=== PATIENT | female | born 1940 | race Two or more races ===

== ENCOUNTER 2023-01-25 11:23 | Inpatient (IN) | payer MEDICARE ==
[~2023-01-25] VITALS: Ht 152.4 cm; Wt 47.6 kg
--- NOTE | 2023-01-25 11:33 | NUR ---
PT IN BED 12, BROUGHT IN BY FAMILY FOR WORSENING CONFUSION SECONDARY TO ALZHEIMERS. CURRENTLY PT IS NOT DISPLAYING ANY S/S OF DISTRESS. IS CALM AND FOLLOWING DIRECTIONS AND ALLOWING STAFF TO PROVIDE CARE. FAMILY IS AT BEDSIDE. BED LOCKED IN LOWEST PSOTION HI FOWLERS. CONNECTED TO BEDSIDE MONITOR.
--- NOTE | 2023-01-25 11:49 | NUR ---
BLOOD AND CULTRUES DRAWN AND SENT TO LAB
--- NOTE | 2023-01-25 11:50 | NUR ---
COVID AND MRSA SWABED AND SENT TO LAB
[2023-01-25 12:04] LABS: BASOPHILS # (AUTO) 0.1 K/uL (0.0-0.2); BASOPHILS % (AUTO) 0.7 % (0.0-2.0); EOSINOPHILS % (AUTO) 0.7 % (0.0-6.0); HEMATOCRIT 44 % (33-45); HEMOGLOBIN 14.9 g/dL (11.5-14.8); LYMPHOCYTES # (AUTO) 1.7 K/uL (0.8-4.8); LYMPHOCYTES % (AUTO) 20.6 % (20.0-44.0); MEAN CORPUSCULAR HGB CONC 34 g/dl (31.0-36.0); MEAN CORPUSCULAR VOLUME 92 fL (82-100); MONOCYTES # (AUTO) 0.4 K/uL (0.1-1.30); NEUTROPHILS # (AUTO) 5.9 K/uL (1.8-8.9); PLATELET COUNT (AUTO) 205 K/uL (150-450); WHITE BLOOD COUNT (AUTO) 8.1 K/uL (4.3-11.0)
--- NOTE | 2023-01-25 12:21 | NUR ---
URINE SAMPLE COLLECTED AND SENT
[2023-01-25 12:28] LABS: CALCIUM, SERUM 9.8 mg/dL (8.5-10.1); CARBON DIOXIDE 28 mmol/L (21-32); CHLORIDE 104 mmol/L (98-107); CREATININE 0.9 mg/dL (0.6-1.3); GLUCOSE 237 mg/dL (74-106); POTASSIUM 3.6 mmol/L (3.5-5.1); SODIUM SERUM 142 mmol/L (136-145); UREA NITROGEN, BLOOD 25 mg/dL (7-18)
[2023-01-25 12:34] LABS: ALANINE AMINOTRANSFERASE 27 U/L (12-78); ALBUMIN 3.9 g/dL (3.4-5.0); ALKALINE PHOSPHATASE 64 U/L (46-116); ASPARTATE AMINOTRANSFERASE 20 U/L (15-37); BILIRUBIN,DIRECT 0.1 mg/dL (0.0-0.2); BILIRUBIN,TOTAL 0.4 mg/dL (0.2-1.0); TOTAL PROTEIN, SERUM 7.4 g/dL (6.4-8.2)
--- NOTE | 2023-01-25 12:53 | NUR ---
CALLED NURSING SUP REGARDING PT BED
[2023-01-25 12:54] LABS: BILIRUBIN,URINE NEGATIVE (NEGATIVE); COLOR,URINE YELLOW (YELLOW); LEUKOCYTE ESTERASE ,URINE NEGATIVE (NEGATIVE); NITRITE, URINE NEGATIVE (NEGATIVE); PROTEIN,URINE NEGATIVE (NEGATIVE); UGLUCOSE 1+ mg/dL (NEGATIVE); UROBILINOGEN,URINE 0.2 EU/dL (0.2)
[2023-01-25 13:04] LABS: BACTERIA,URINE Moderate /HPF (None Seen); RBC,URINE 0-2 /HPF (0-2); SQUAMOUS EPITHELIAL CELL,UR Few /HPF (None Seen); WBC,URINE 0-2 /HPF (0-3)
--- NOTE | 2023-01-25 13:04 | NUR ---
REPEAT URINE SAMPLE IN PROGRESS
--- NOTE | 2023-01-25 13:57 | NUR ---
room [id number]
[2023-01-25] MEDS ORDERED: ONDANSETRON HCL/PF 4 MG/2 ML VIAL IVP PRN (14:00)
[2023-01-25] MEDS ORDERED: ACETAMINOPHEN 325 MG TABLET PO PRN (14:00)
[2023-01-25] MEDS ORDERED: MAG HYDROX/AL HYDROX/SIMETH 30 ML UDC PO PRN (14:00)
[2023-01-25] MEDS ORDERED: MAGNESIUM HYDROXIDE 30 ML UDC PO PRN (14:00)
[2023-01-25] MEDS ORDERED: CLONIDINE HCL 0.1 MG TABLET PO PRN (14:00)
[2023-01-25] MEDS ORDERED: Z GUARD REMEDY 4 OZ OINT TP PRN (14:00)
--- NOTE | 2023-01-25 14:09 | NUR ---
HANDOFF REPORT GIVEN TO [facility] FOR INPATIENT SERVICES.
--- NOTE | 2023-01-25 14:19 | NUR ---
PT TRANSFERED TO 3W FAMILY AT BEDSIDE WITH EMT MED SURG LEVEL OF CARE.
--- NOTE | 2023-01-25 14:25 | NUR ---
MS ELIGIBILITY EXAMINER NOTES RECEIVED PATIENT VIA GURNEY FROM ER AT 1425H ACCOMPANIED BY 1 ER STAFF. WITH ADMITTING DIAGNOSIS OF ALTERED LEVEL OF CONSCIOUSNESS. PATIENT IS AWAKE, A/OX 2, VERBALLY RESPONSIVE, CAN SPEAK LEBANESE AND LITHUANIAN. PATIENT IS CURRENTLY ON ROOM AIR, TOLERATING WELL. NO SIGNS OF ACUTE DISTRESS AND SOB. PATIENT HAS NO IV ACCESS AT THUS TIME. PATIENT REFUSED BODY ASSESSMENT. PATIENT DENIES ANY PAIN AT THIS TIME. SAFETY MEASURES PUT IN PLACE. BED IN LOW AND LOCKED POSITION. SIDE RAILS UP X3. CALL LIGHT WITHIN EASY REACH. WILL CONTINUE TO MONITOR THE PATIENT.
--- NOTE | 2023-01-25 15:00 | NUR ---
MS RN PATIENT REFUSED SKIN ASSESSMENT AND PHOTO DOCUMENTATION.
[2023-01-25] MEDS: IV NS 0.9% 1,000 ML IV PRN ×2 (19:02→19:15)
--- NOTE | 2023-01-25 19:25 | NUR ---
MS BAY ATTEMPTED IV INSERTION FOR 3X, BUT PATIENT REFUSED FOR 3X.
--- NOTE | 2023-01-25 19:55 | NUR ---
MS RN CLOSING NOTES PATIENT IS AWAKE, A/OX 2, VERBALLY RESPONSIVE, CAN SPEAK TURKISH AND BURKINAN. PATIENT IS ON ROOM AIR, TOLERATED WELL. NO SIGNS OF ACUTE DISTRESS AND SOB. BREATHING EVEN AND UNLABORED. PATIENT REFUSED IV INSERTION. PATIENT DENIES ANY PAIN AT THIS TIME. ALL NURSING NEEDS ATTENDED. SAFETY MEASURES IN PLACED. BED IN LOW AND LOCKED POSITION. SIDE RAILS UP X3. CALL LIGHT WITHIN EASY REACH. WILL ENDORSED TO PROJECT PRODUCTION ENGINEER NURSE FOR CONTINUITY OF CARE.
[2023-01-25 20:00] VITALS: BP 132/98
--- NOTE | 2023-01-25 20:14 | NUR ---
RN OPENING NOTE RECEIVED PT AWAKE IN BED. PT IS A/O X 2-3, ANXIOUS, PARANOID & FORGETFUL, ABLE TO MAKE NEEDS KNOWN. PT IS IN RA TOLERATING WELL, BREATHING EVEN AND UNLABORED @ THIS TIME. PT IS AMBULATORY, STEADY. PT HAS NO IV PRESENT D/T PT REFUSAL. SAFETY MEASURES IS IN PLACE. BED IN LOWEST AND LOCKED POSITION. SIDE RAILS UP X 2. BEDSIDE TABLE AND CALL LIGHT IS EASY REACH. BED ALARM IS ON. WILL CONTINUE TO MONITOR PT ACCORDINGLY. Addendum: 01/25/23 at 2016 by ALMAS VELASQUEZ RN TIME ERROR. OPENING NOTES @1900.
[2023-01-26 06:26] LABS: HEMATOCRIT 41 % (33-45); HEMOGLOBIN 13.8 g/dL (11.5-14.8); MEAN CORPUSCULAR HGB CONC 34 g/dl (31.0-36.0); MEAN CORPUSCULAR VOLUME 91 fL (82-100); RED BLOOD CELL COUNT(AUTO) 4.44 MIL/uL (4.0-5.2); WHITE BLOOD COUNT (AUTO) 7.1 K/uL (4.3-11.0)
[2023-01-26 06:27] LABS: BASOPHILS # (AUTO) 0.1 K/uL (0.0-0.2); BASOPHILS % (AUTO) 0.9 % (0.0-2.0); LYMPHOCYTES # (AUTO) 2.4 K/uL (0.8-4.8); LYMPHOCYTES % (AUTO) 34.3 % (20.0-44.0); MONOCYTES # (AUTO) 0.5 K/uL (0.1-1.30); MONOCYTES % (AUTO) 6.5 % (2.0-12.0); NEUTROPHILS % (AUTO) 56.3 % (43.0-81.0); PLATELET COUNT (AUTO) 191 K/uL (150-450)
--- NOTE | 2023-01-26 06:36 | NUR ---
RN CLOSING NOTE PT AWAKE & RESTING COMFORTABLY IN BED. PT IS A/O X 2, RESPONSIVE AND FOLLOWS VERBAL COMMAND. PT IS IN RA W/ NO S & SX OF RESPIRATORY DISTRESS NOTED @ THIS TIME. PT HAS NO IV PRESENT D/T PT REFUSAL. SAFETY MEASURES IS IN PLACE. BED IN LOWEST AND LOCKED POSITION. SIDE RAILS UP X 2. BEDSIDE TABLE AND CALL LIGHT IS EASY REACH. BED ALARM IS ON. WILL ENDORSE TO THE NEXT SHIFT FOR CONTINUITY OF CARE.
[2023-01-26 06:54] LABS: CALCIUM, SERUM 8.8 mg/dL (8.5-10.1); CARBON DIOXIDE 29 mmol/L (21-32); CHLORIDE 105 mmol/L (98-107); GLUCOSE 163 mg/dL (74-106); MAGNESIUM 1.7 mg/dL (1.8-2.4); PHOSPHORUS 3.9 mg/dL (2.5-4.9); POTASSIUM 3.4 mmol/L (3.5-5.1); SODIUM SERUM 142 mmol/L (136-145); UREA NITROGEN, BLOOD 23 mg/dL (7-18)
[2023-01-26] MEDS ORDERED: MAGNESIUM OXIDE 400 MG TABLET PO ONE (07:30)
[2023-01-26] MEDS ORDERED: POTASSIUM CHLORIDE 20 MEQ TAB.PRT.SR PO ONE (07:30)
--- NOTE | 2023-01-26 07:31 | NUR ---
MS RN OPENING NOTE Received pt in bed, awake, ambulatory. A/O x 2-3, able to make needs known. On room air, tolerating well. No IV access noted. Pt refused IV insertion. Safety measures in place: bed locked and in lowest position, side rails up x 2, call light and tray table within easy reach. Will continue to monitor.
[2023-01-26 08:00] VITALS: BP 140/77
[2023-01-26] MEDS ORDERED: POTASSIUM CHLORIDE 20 MEQ POWDER PACKET PO ONE (09:00)
--- NOTE | 2023-01-26 09:00 | NUR ---
RN NOTES Pt refused IV insertion despite educating the need and consequences of having IV access.
[2023-01-26] MEDS ORDERED: Magnesium 1GM/D5W 100ML PREMIX 100 ML IV SCH (11:00)
[2023-01-26] MEDS ORDERED: CLOB15OI3 TP (11:15)
[2023-01-26] MEDS ORDERED: METF-440 PO (11:15)
[2023-01-26] MEDS ORDERED: CALC500T52 PO (11:15)
[2023-01-26] MEDS ORDERED: GLIP2.5T3 PO (11:15)
[2023-01-26] MEDS ORDERED: DONE10TA44 PO (11:15)
[2023-01-26] MEDS ORDERED: INSU200I4 SQ (11:15)
[2023-01-26] MEDS ORDERED: METO-357 PO (11:15)
[2023-01-26 16:00] VITALS: BP 124/74
--- NOTE | 2023-01-26 18:42 | NUR ---
MS RN CLOSING NOTE Pt resting in bed. A/O x 2-3, able to make needs known. No c/o pain/discomfort at this time. On room air, tolerating well. No IV access. Pt refused IV insertion. Needs attended. Safety measures in place: bed locked and in lowest position, side rails up x 2, call light and tray table within easy reach. Will endorse wyatt to shift supervisor film processing.
--- NOTE | 2023-01-26 19:30 | NUR ---
MS RN OPENING NOTE RECEIVED PATIENT SITTING IN BED, AWAKE, ALERT AND ORIENTED X2-3. ABLE TO MAKE NEEDS KNOWN. AFEBRILE AND NOT IN ANY FORM OF ACUTE DISTRESS. BREATHING EVEN AND NON LABORED. NO C/O PAIN OR DISCOMFORT AT THIS TIME. REFUSED INSERTION OF IV LINE, MD AWARE PER REPORT. SAFETY MEASURES IN PLACE. KEPT BED IN LOCKED AND IN LOW POSITION. SIDE RAILS UP X2. ADVISED TO USE THE CALL LIGHT WHEN IN NEED OF ASSISTANCE.
[2023-01-26 20:00] VITALS: BP 154/96
[2023-01-26 20:30] VITALS: BP 131/61
--- NOTE | 2023-01-26 20:30 | NUR ---
MS RN NOTE PATIENT'S BP AT AROUND 1999 WAS ELEVATED 154/96 BUT WAS AMBULATING PRIOR TO TAKING VITALS. ADVISED THE PATIENT TO REST AND RECHECKED AFTER 30 MINS AND WENT DOWN TO 131/61 P-88.
--- NOTE | 2023-01-27 06:21 | NUR ---
MS RN CLOSING NOTE PATIENT IN BED, ASLEEP BUT EASY TO AROUSE AND RESPONSIVE. WITH BOUTS OF CONFUSION. ABLE TO MAKE NEEDS KNOWN. AFEBRILE AND NOT IN ANY FORM OF ACUTE DISTRESS. BREATHING EVEN AND NON LABORED. NO C/O PAIN OR DISCOMFORT THROUGHOUT THE SHIFT. REFUSED INSERTION OF IV LINE, MD AWARE PER REPORT. SAFETY MEASURES IN PLACE. KEPT BED IN LOCKED AND IN LOW POSITION. SIDE RAILS UP X2. ADVISED TO USE THE CALL LIGHT WHEN IN NEED OF ASSISTANCE. ALL NURSING NEEDS ATTENDED. ENDORSED TO INCOMING SHIFT FOR CONTINUITY OF CARE.
[2023-01-27 06:36] LABS: BASOPHILS # (AUTO) 0.1 K/uL (0.0-0.2); BASOPHILS % (AUTO) 0.8 % (0.0-2.0); EOSINOPHILS % (AUTO) 1.5 % (0.0-6.0); HEMATOCRIT 41 % (33-45); HEMOGLOBIN 13.9 g/dL (11.5-14.8); LYMPHOCYTES # (AUTO) 2.6 K/uL (0.8-4.8); LYMPHOCYTES % (AUTO) 33.1 % (20.0-44.0); MEAN CORPUSCULAR HGB CONC 34 g/dl (31.0-36.0); MEAN CORPUSCULAR VOLUME 90 fL (82-100); MONOCYTES # (AUTO) 0.4 K/uL (0.1-1.30); MONOCYTES % (AUTO) 5.3 % (2.0-12.0); NEUTROPHILS # (AUTO) 4.6 K/uL (1.8-8.9); NEUTROPHILS % (AUTO) 59.3 % (43.0-81.0); PLATELET COUNT (AUTO) 195 K/uL (150-450); RED BLOOD CELL COUNT(AUTO) 4.51 MIL/uL (4.0-5.2); WHITE BLOOD COUNT (AUTO) 7.8 K/uL (4.3-11.0)
[2023-01-27 06:57] LABS: CALCIUM, SERUM 9.1 mg/dL (8.5-10.1); CARBON DIOXIDE 28 mmol/L (21-32); CHLORIDE 104 mmol/L (98-107); CREATININE 0.8 mg/dL (0.6-1.3); GLUCOSE 196 mg/dL (74-106); SODIUM SERUM 140 mmol/L (136-145); UREA NITROGEN, BLOOD 19 mg/dL (7-18)
--- NOTE | 2023-01-27 07:40 | NUR ---
RN OPENING NOTE PATIENT AWAKE IN BED, RESTING, A/O X 2-3, FORGETFUL AND CONFUSED, PATIENT WAS REDIRECTED. NO S/S OF PAIN NOTED AT THIS TIME. ON ROOM AIR, BREATHING EVEN AND UNLABORED, NO DISTRESS OR SHORTNESS OF BREATH NOTED. PATIENT IS COMPLIANT WITH MEDICATIONS. NO IV ACCESS, PATIENT REFUSED. FALL AND SAFETY MEASURES IN PLACE BED ALARM ON, BED IN LOW AND LOCK POSITION, CALL LIGHT AND TABLE WITHIN EASY REACH, SIDE RAILS UP X2. WILL CONTINUE TO MONITOR.
[2023-01-27 10:12] VITALS: BP 158/88
[2023-01-27 15:54] VITALS: BP 152/98
--- NOTE | 2023-01-27 18:43 | NUR ---
RN CLOSING NOTE PATIENT AWAKE IN BED, RESTING, A/O X 2-3, FORGETFUL AND CONFUSED, PATIENT WAS REDIRECTED MULTIPLE TIMES DURING THE SHIFT, PATIENT IS ABLE TO FOLLOW REDIRECTIONS. NO S/S OF PAIN NOTED AT THIS TIME. ON ROOM AIR, BREATHING EVEN AND UNLABORED, NO DISTRESS OR SHORTNESS OF BREATH NOTED. NO IV ACCESS, PATIENT REFUSED. FALL AND SAFETY MEASURES IN PLACE BED ALARM ON, BED IN LOW AND LOCK POSITION, CALL LIGHT AND TABLE WITHIN EASY REACH, SIDE RAILS UP X2. ALL NEEDS ATTENDED AND ANTICIPATED. WILL ENDORSE TO CENTERLESS GRINDING MACHINE ADJUSTER NURSE.
[2023-01-27 20:00] VITALS: BP_SYST 136; BP_SYST 138; BP_DIAS 87
--- NOTE | 2023-01-27 20:02 | NUR ---
UI DESIGNER OPENING NOTES: RECEIVED PATIENT AWAKE IN BED, BED IN LOW POSITION CALL LIGHTS WITHIN REACH, NO COMPLAIN OF PAIN AND DISCOMFORT AT THIS TIME, ON ROOM AIR SATURATING WELL, PATIENT IS A/O X 2-3 ABLE TO MAKE NEEDS KNOWN, AMBULATORY, NEEDS REDIRECTION, PATIENT REFUSED IV LINE, PATIENT KEPT CLEANAND DRY ALL NEEDS MET WILL CONTINUE TO MONITOR.
--- NOTE | 2023-01-27 20:32 | NUR ---
RN NOTES: PATIENT REMAINS STABLEIN BED SLEEPIN AROUSABLE ENDORSE TO RN SEEMA,
--- NOTE | 2023-01-27 20:35 | NUR ---
MS RN OPENING NOTE: PATIENT IS SLEEPING IN BED, EASILY BEING AROUSED. SHE IS ALERT AND ORIENTED, AO X 2 WITH SOME EPISODES OF CONFUSION AND AGITATION. PT REFUSED TO HAVE IV ACCESS. PT DENIES OF HAVING PAIN AT THIS MOMENT. SAFETY MEASURES ARE IN PLACED: BED IN LOWED AND LOCKED POSITION; SIDE RAILS UP X 2; CALL LIGHT AND TABLE ARE WITHIN REACH. WILL CONTINUE MONITORING THE PT AND PROVIDE THE CARE PT NEEDS.
--- NOTE | 2023-01-28 07:33 | NUR ---
RN OPENING NOTE PATIENT AWAKE IN BED, RESTING, A/O X 2-3, FORGETFUL AND CONFUSED AT TIMES, PATIENT WAS REDIRECTED. NO S/S OF PAIN NOTED AT THIS TIME. ON ROOM AIR, BREATHING EVEN AND UNLABORED, NO DISTRESS OR SHORTNESS OF BREATH NOTED. PATIENT IS COMPLIANT WITH MEDICATIONS. NO IV ACCESS, PATIENT REFUSED. FALL AND SAFETY MEASURES IN PLACE BED ALARM ON, BED IN LOW AND LOCK POSITION, CALL LIGHT AND TABLE WITHIN EASY REACH, SIDE RAILS UP X2. WILL CONTINUE TO MONITOR.
[2023-01-28 08:34] VITALS: BP 130/78
[2023-01-28 16:03] VITALS: BP 126/84
--- NOTE | 2023-01-28 16:35 | NUR ---
SANDBLAST OR SHOTBLAST EQUIPMENT TENDER NOTE PATIENT DISCHARGE IN STABLE MEDICAL CONDITION. A/O X2, CONFUSED. V/S TAKEN STABLE AND RECORDED. NO IV ACCESS. NAME ARM BAND REMOVED. SKIN ASSESSMENT DONE AND PICTURE TAKEN. ALL BELONGINGS CHECKED AND BELONGING LIST SIGNED. HEALTH TEACHING, DISCUSSED PRESCRIPTIONS AND DISCHARGE INSTRUCTIONS GIVEN TO PATIENT AND NURSE AT FACILITY, VERBALIZED UNDERSTANDING.INSTRUCTED TO FOLLOW UP WITH PRIMARY CARE DOCTOR AND INCASE OF EMERGENCY TO CALL 911 OR GO TO NEAREST ER. REPORT GIVEN TO KATI AT [facility] [phone]. PATIENT LEFT UNIT VIA GURNEY WITH NO SIGNS OF DISTRESS, ACCOMPANIED BY PEDIATRIC ACUTE CARE UNIT NURSE. CHARGE NURSE AWARE OF DISCHARGE.
== END 2023-01-28 16:30 | DRG 640 ==
LOC: ER 11:28 → MED 13:59
PROVIDERS: ADMIT Internal Medicine; ATTEND Internal Medicine
DX: E86.0 Dehydration (principal); G93.41 Metabolic encephalopathy; N17.0 Acute kidney failure with tubular necrosis; N39.0 Urinary tract infection, site not specified; I16.0 Hypertensive urgency; E11.9 Type 2 diabetes mellitus without complications; I10 Essential (primary) hypertension; I25.10 Atherosclerotic heart disease of native coronary artery without angina pectoris; Z95.5 Presence of coronary angioplasty implant and graft; E78.00 Pure hypercholesterolemia, unspecified; Z88.0 Allergy status to penicillin; Z20.822 Contact with and (suspected) exposure to COVID-19
CPT/HCPCS: 36415; 71045-TC; 80048-TC; 80076-TC; 81001; 83605-TC; 83735-TC; 84100-TC; 84484-TC; 85025-TC; 85730-TC; 87040-TC; 87081-TC; 87086-TC; A4223; C9803; G0378; J7030